=== PATIENT | male | born 1945 | race Caucasian/White ===

== ENCOUNTER 2020-03-17 12:14 | Inpatient (IN) ==
[2020-03-17 13:17] LABS: INR 2.22 (0.82-1.09)
[2020-03-17] MEDS ORDERED: Phytonadione SUBCUT/IM Adult 10 MG/ML AMP (IM or SQ not preferred route) IM ONE (13:45)
[2020-03-17] MEDS ORDERED: PHYTONADIONE 10 MG IVPB - ED ONCE IV ONE (14:00)
[2020-03-17 14:23] LABS: Albumin 3.9 g/dL (3.2-5.2); Albumin/Globulin Ratio 1.5 (1-3); BUN/Creatinine Ratio 14.3 (8-20); Calcium 8.9 mg/dL (8.6-10.3); EGFR African American 98.3 (>60); EGFR Non-African American 81.2 (>60); Globulin 2.6 g/dL (2-4); Potassium 3.5 mmol/L (3.5-5.0); Total Bilirubin 0.6 mg/dL (0.2-1.0); Total Protein 6.5 g/dL (6.4-8.9)
[2020-03-17 15:12] LABS: Activated Partial Thrombo Time 35.3 seconds (26.0-38.0)
[2020-03-17 18:06] LABS: ABS Eosinophils 0.1 10^3/ul (0-0.6); ABS Lymphocytes 1.5 10^3/ul (1.0-4.8); ABS Monocytes 0.7 10^3/ul (0-0.8); Eosinophil % 1.4 %; Hematocrit 38 % (42-52); Hemoglobin 12.4 g/dL (14.0-18.0); Lymphocyte % 20.1 %; Mean Corpuscular HGB Conc 33 g/dL (31-36); Mean Corpuscular Hemoglobin 27 pg (27-31); Mean Corpuscular Volume 81 fL (80-94); Mean Platelet Volume 10.5 fL (7.4-10.4); Platelet Count 129 10^3/uL (150-450); Red Blood Count 4.65 10^6 /uL (4.18-5.48); Red Cell Distribution Width 16 % (10-15); White Blood Count 7.3 10^3/uL (3.5-10.8)
[2020-03-17] MEDS ORDERED: Ondansetron 4 mg VIAL 2 MG/ML 2 ml VIAL IV PRN (18:14)
[2020-03-17 18:30] LABS: INR 1.58 (0.82-1.09)
[2020-03-17] MEDS: Metoprolol Tartrate 5 mg VIAL 5 ml VIAL (1 mg/ml) IV SCH (22:19)
[2020-03-18] MEDS: NS 0.9% 1000 ml BAG 1,000 ML IV SCH ×3 (00:58→23:20)
[2020-03-18] MEDS: Metoprolol Tartrate 5 mg VIAL 5 ml VIAL (1 mg/ml) IV SCH ×3 (02:09→15:21)
[2020-03-18 04:44] LABS: ABS Eosinophils 0.1 10^3/ul (0-0.6); ABS Lymphocytes 1.4 10^3/ul (1.0-4.8); ABS Monocytes 0.7 10^3/ul (0-0.8); Eosinophil % 1.1 %; Hematocrit 30 % (42-52); Hemoglobin 9.9 g/dL (14.0-18.0); Lymphocyte % 22.5 %; Mean Corpuscular HGB Conc 33 g/dL (31-36); Mean Corpuscular Hemoglobin 27 pg (27-31); Mean Corpuscular Volume 80 fL (80-94); Mean Platelet Volume 9.5 fL (7.4-10.4); Platelet Count 113 10^3/uL (150-450); Red Blood Count 3.71 10^6 /uL (4.18-5.48); Red Cell Distribution Width 17 % (10-15); White Blood Count 6.4 10^3/uL (3.5-10.8)
[2020-03-18 04:53] LABS: INR 1.42 (0.82-1.09)
[2020-03-18 04:59] LABS: BUN/Creatinine Ratio 16.2 (8-20); Calcium 7.5 mg/dL (8.6-10.3); EGFR African American 124.8 (>60); EGFR Non-African American 103.1 (>60); Magnesium 1.5 mg/dL (1.9-2.7); Phosphorus 2.4 mg/dL (2.5-5.0)
[2020-03-18] MEDS ORDERED: Magnesium Sulfate IV 3 GM in NS 0.9% 100 ml BAG 100 ML IVPB ONE (09:56)
[2020-03-18] MEDS: KCL 10 MEQ/50 ML IVPREMIX 10 MEQ/50 ML BAG IV SCH ×3 (10:26→12:39)
[2020-03-18 17:05] LABS: INR 1.23 (0.82-1.09)
[2020-03-18] MEDS: hydrALAZINE 20 mg/ml 1 ML Vial IV IV SLOW PU PRN (17:26)
[2020-03-19 04:27] LABS: Hematocrit 34 % (42-52); Hemoglobin 11.3 g/dL (14.0-18.0); Mean Corpuscular HGB Conc 34 g/dL (31-36); Mean Corpuscular Hemoglobin 27 pg (27-31); Mean Corpuscular Volume 80 fL (80-94); Mean Platelet Volume 9.3 fL (7.4-10.4); Platelet Count 125 10^3/uL (150-450); Red Blood Count 4.23 10^6 /uL (4.18-5.48); Red Cell Distribution Width 16 % (10-15); White Blood Count 7.3 10^3/uL (3.5-10.8)
[2020-03-19 04:32] LABS: INR 1.22 (0.82-1.09)
[2020-03-19 04:42] LABS: BUN/Creatinine Ratio 13.8 (8-20); EGFR Non-African American 94.2 (>60); Phosphorus 2.4 mg/dL (2.5-5.0); Potassium 3.5 mmol/L (3.5-5.0)
[2020-03-19] MEDS: Metoprolol Tartrate 5 mg VIAL 5 ml VIAL (1 mg/ml) IV SCH (07:34)
[2020-03-19] MEDS: hydrALAZINE 20 mg/ml 1 ML Vial IV IV SLOW PU PRN (11:43)
[2020-03-19 15:25] VITALS: BP 132/77
== END 2020-03-19 16:06 | disposition home or self-care (01) | DRG 86 ==
LOC: ED 12:14 → ICU 16:45
PROVIDERS: ADMIT Surgery Surgical Critical Care; ATTEND Surgery Surgical Critical Care

== ENCOUNTER 2022-08-30 16:56 | Inpatient (IN) ==
[2022-08-30 17:55] LABS: ABS Basophils 0.1 10^3/ul (0-0.2); ABS Eosinophils 0.1 10^3/ul (0-0.6); ABS Lymphocytes 1.5 10^3/ul (1.0-4.8); ABS Monocytes 0.5 10^3/ul (0-0.8); ABS Neutrophils 5.9 10^3/ul (1.5-7.7); Eosinophil % 0.8 %; Hematocrit 26 % (42-52); Lymphocyte % 19.1 %; Mean Corpuscular HGB Conc 32 g/dL (31-36); Mean Corpuscular Hemoglobin 28 pg (27-31); Mean Corpuscular Volume 88 fL (80-94); Mean Platelet Volume 9.3 fL (7.4-10.4); Nucleated Red Blood Cells % 0.1; Platelet Count 167 10^3/uL (150-450); Red Blood Count 2.92 10^6 /uL (4.18-5.48); Red Cell Distribution Width 16 % (10-15); White Blood Count 8.1 10^3/uL (3.5-10.8)
[2022-08-30 18:40] LABS: Albumin 3.4 g/dL (3.2-5.2); Albumin/Globulin Ratio 1.3 (1-3); C Reactive Protein 4.11 mg/L (<8.01); Calcium 8.6 mg/dL (8.6-10.3); Globulin 2.6 g/dL (2-4); Potassium 3.8 mmol/L (3.5-5.0); Total Bilirubin 0.5 mg/dL (0.2-1.0); eGFR CKD-EPI 89.5 (>60)
[2022-08-30] MEDS ORDERED: Prothrombin Complex Conc. DOSE = Units Factor IX (nine) IV SLOW PU ONE (19:51)
[2022-08-30] MEDS ORDERED: Lactated Ringers 1000 ml BAG 1,000 ML IV ONE (19:52)
[2022-08-30] MEDS ORDERED: Phytonadione IV (Adult) 10 MG in NS 0.9% 50 ML 50 ML IV ONE (20:12)
[2022-08-30 20:23] LABS: INR 2.1 (0.89-1.11)
[2022-08-30 23:53] LABS: ABS Basophils 0.1 10^3/ul (0-0.2); ABS Eosinophils 0.1 10^3/ul (0-0.6); ABS Lymphocytes 1.5 10^3/ul (1.0-4.8); ABS Monocytes 0.6 10^3/ul (0-0.8); Eosinophil % 0.8 %; Hematocrit 26 % (42-52); Hemoglobin 8.3 g/dL (14.0-18.0); Lymphocyte % 15.9 %; Mean Corpuscular HGB Conc 33 g/dL (31-36); Mean Corpuscular Hemoglobin 28 pg (27-31); Mean Corpuscular Volume 85 fL (80-94); Mean Platelet Volume 8.9 fL (7.4-10.4); Nucleated Red Blood Cells % 0.1; Platelet Count 149 10^3/uL (150-450); Red Cell Distribution Width 15 % (10-15); White Blood Count 9.3 10^3/uL (3.5-10.8)
[2022-08-30 23:59] LABS: Magnesium 1.9 mg/dL (1.9-2.7); Phosphorus 3.2 mg/dL (2.5-5.0)
[2022-08-31 00:14] LABS: INR 1.35 (0.89-1.11)
[2022-08-31 00:26] LABS: Albumin 2.9 g/dL (3.2-5.2); Albumin/Globulin Ratio 1.5 (1-3); Calcium 7.8 mg/dL (8.6-10.3); Magnesium 1.8 mg/dL (1.9-2.7); Phosphorus 2.6 mg/dL (2.5-5.0); Potassium 3.9 mmol/L (3.5-5.0); Total Bilirubin 0.8 mg/dL (0.2-1.0); Total Protein 4.9 g/dL (6.4-8.9); eGFR CKD-EPI 92.9 (>60)
[2022-08-31] MEDS ORDERED: Magnesium Sulfate 2 gm BAG 2 GM/50 ML BAG IVPB ONE (00:52)
[2022-08-31] MEDS ORDERED: KCL 10 MEQ/50 ML IVPREMIX 10 MEQ/50 ML BAG IV ONE (00:52)
[2022-08-31] MEDS: Pantoprazole VIAL 40 MG VIAL IV SCH ×2 (01:59→12:18)
[2022-08-31] MEDS ORDERED: PEG 3000 GI LAVAGE 1 GALLON PO ONE ×2 (06:00→17:55)
[2022-08-31 06:43] LABS: ABS Eosinophils 0.1 10^3/ul (0-0.6); ABS Lymphocytes 1.6 10^3/ul (1.0-4.8); ABS Monocytes 0.5 10^3/ul (0-0.8); ABS Neutrophils 4.3 10^3/ul (1.5-7.7); Eosinophil % 1.4 %; Hematocrit 24 % (42-52); Hemoglobin 8.2 g/dL (14.0-18.0); Lymphocyte % 24.3 %; Mean Corpuscular HGB Conc 35 g/dL (31-36); Mean Corpuscular Hemoglobin 30 pg (27-31); Mean Corpuscular Volume 86 fL (80-94); Mean Platelet Volume 9.5 fL (7.4-10.4); Nucleated Red Blood Cells % 0.3; Platelet Count 133 10^3/uL (150-450); Red Blood Count 2.76 10^6 /uL (4.18-5.48); Red Cell Distribution Width 16 % (10-15); White Blood Count 6.5 10^3/uL (3.5-10.8)
[2022-08-31 06:52] LABS: Calcium 7.4 mg/dL (8.6-10.3); Potassium 3.9 mmol/L (3.5-5.0); eGFR CKD-EPI 92.2 (>60)
[2022-08-31 12:55] LABS: Hematocrit 24 % (42-52); Hemoglobin 7.8 g/dL (14.0-18.0)
[2022-08-31 22:39] LABS: Hematocrit 24 % (42-52); Hemoglobin 7.7 g/dL (14.0-18.0)
[2022-09-01] MEDS: Pantoprazole VIAL 40 MG VIAL IV SCH ×2 (03:14→12:44)
[2022-09-01 05:47] LABS: ABS Basophils 0.1 10^3/ul (0-0.2); ABS Eosinophils 0.1 10^3/ul (0-0.6); ABS Lymphocytes 1.6 10^3/ul (1.0-4.8); ABS Monocytes 0.5 10^3/ul (0-0.8); ABS Neutrophils 3.2 10^3/ul (1.5-7.7); Eosinophil % 1.4 %; Hematocrit 28 % (42-52); Hemoglobin 8.8 g/dL (14.0-18.0); Lymphocyte % 29.4 %; Mean Corpuscular HGB Conc 32 g/dL (31-36); Mean Corpuscular Hemoglobin 28 pg (27-31); Mean Corpuscular Volume 87 fL (80-94); Mean Platelet Volume 9.1 fL (7.4-10.4); Nucleated Red Blood Cells % 0.1; Platelet Count 148 10^3/uL (150-450); Red Blood Count 3.18 10^6 /uL (4.18-5.48); Red Cell Distribution Width 16 % (10-15); White Blood Count 5.4 10^3/uL (3.5-10.8)
[2022-09-01 06:08] LABS: Potassium 3.9 mmol/L (3.5-5.0); eGFR CKD-EPI 88.6 (>60)
[2022-09-01 13:37] LABS: Magnesium 1.9 mg/dL (1.9-2.7)
[2022-09-01] MEDS ORDERED: Midazolam 5 mg/5 ml VIAL 1 mg/ml 5 ml VIAL (5 mg) ONE (15:37)
[2022-09-01] MEDS ORDERED: fentaNYL 100 mcg/2 ml 50 MCG/ML VIAL ONE (15:37)
[2022-09-02] MEDS: Pantoprazole VIAL 40 MG VIAL IV SCH ×2 (01:58→12:25)
[2022-09-02 04:51] LABS: ABS Eosinophils 0.1 10^3/ul (0-0.6); ABS Lymphocytes 1.5 10^3/ul (1.0-4.8); ABS Monocytes 0.6 10^3/ul (0-0.8); ABS Neutrophils 3.1 10^3/ul (1.5-7.7); Eosinophil % 1.1 %; Hematocrit 27 % (42-52); Hemoglobin 8.6 g/dL (14.0-18.0); Lymphocyte % 27.7 %; Mean Corpuscular HGB Conc 32 g/dL (31-36); Mean Corpuscular Hemoglobin 28 pg (27-31); Mean Corpuscular Volume 85 fL (80-94); Platelet Count 139 10^3/uL (150-450); Red Blood Count 3.12 10^6 /uL (4.18-5.48); Red Cell Distribution Width 16 % (10-15); White Blood Count 5.3 10^3/uL (3.5-10.8)
[2022-09-02 05:02] LABS: Calcium 7.9 mg/dL (8.6-10.3); Magnesium 1.9 mg/dL (1.9-2.7); Potassium 3.6 mmol/L (3.5-5.0); eGFR CKD-EPI 84.6 (>60)
[2022-09-02 15:16] LABS: Carcinoembryonic Antigen 0.8 ng/mL (0.1-5.0)
[2022-09-02] MEDS ORDERED: Iodixanol (CONTRAST) 320 MG/ML 100 ML SDV IV ONE (18:51)
[2022-09-03 04:54] LABS: Hematocrit 28 % (42-52); Mean Corpuscular HGB Conc 32 g/dL (31-36); Mean Corpuscular Hemoglobin 28 pg (27-31); Mean Corpuscular Volume 86 fL (80-94); Mean Platelet Volume 8.7 fL (7.4-10.4); Platelet Count 143 10^3/uL (150-450); Red Blood Count 3.22 10^6 /uL (4.18-5.48); Red Cell Distribution Width 16 % (10-15); White Blood Count 4.2 10^3/uL (3.5-10.8)
[2022-09-03 05:21] LABS: Magnesium 1.9 mg/dL (1.9-2.7); Potassium 3.3 mmol/L (3.5-5.0); eGFR CKD-EPI 86.8 (>60)
[2022-09-03] MEDS ORDERED: Potassium Chlor 20 meq TAB.ER PO ONE (07:59)
[2022-09-03] MEDS ORDERED: Iron Sucrose 200 MG in NS 0.9% 100 ml BAG 100 ML IVPB ONE (13:00)
[2022-09-03 14:26] VITALS: BP 144/62
== END 2022-09-03 14:15 | disposition home or self-care (01) | DRG 375 ==
LOC: ED 16:56 → EDHOLD 21:02 → ICU 23:08
PROVIDERS: ADMIT Internal Medicine; ATTEND Internal Medicine

== ENCOUNTER 2022-09-12 08:43 | Inpatient (IN) ==
[2022-09-12 15:05] VITALS: BP 153/82
== END 2022-09-12 09:03 | disposition short-term general hospital (02) | DRG 395 ==
LOC: SSU 08:43
PROVIDERS: ADMIT Surgery; ATTEND Surgery

== ENCOUNTER 2024-06-21 10:46 | Observation (INO) ==
[2024-06-21 12:17] LABS: Hematocrit 38.3 % (38-53); Hemoglobin 12.8 g/dL (13.2-16.3); Mean Corpuscular Hemoglobin 29.3 pg (27-33); Mean Corpuscular Hgb Conc 33.5 g/dL (31-36); Mean Corpuscular Volume 87.4 fL (80-97); Red Blood Count 4.38 10^6/uL (4.06-5.63); Red Cell Distribution Width 16.9 % (12-17); White Blood Count 5.1 10^3/uL (3.6-10.2)
[2024-06-21 12:19] LABS: INR 2.27 (0.85-1.14)
[2024-06-21 12:41] LABS: Mean Platelet Volume 9.1 fL (7.5-11.2); Platelet Count 93 10^3/uL (150-450)
[2024-06-21 12:43] LABS: Albumin/Globulin Ratio 1.6 (1-3); Calcium 8.9 mg/dL (8.6-10.3); Creatinine, Serum 0.77 mg/dL (0.67-1.17); Globulin 2.5 g/dL (2-4); Potassium 4.1 mmol/L (3.5-5.0); Total Protein 6.5 g/dL (6.4-8.9); eGFR CKD-EPI 91.1 (>60)
[2024-06-21] MEDS: Nitro 2% OINT (Nitroglycerin) 1 INCH/PAK TOPICAL ONE (12:44)
[2024-06-21 12:46] LABS: ABS Eosinophils 0.1 10^3/uL (0.0-0.5); ABS Lymphocytes 1.2 10^3/uL (1.0-4.8); ABS Monocytes 0.7 10^3/uL (0.0-1.1); ABS Neutrophils 3.1 10^3/uL (1.5-7.6); Eosinophil % 1.3 %; Lymphocyte % 23.7 %; Nucleated Red Blood Cells % 0.1 %/100WBC (0.0-0.8)
[2024-06-21 13:35] LABS: High Sensitivity Troponin 1 Hr 12 pg/mL (<20)
[2024-06-21] MEDS: Iodixanol (CONTRAST) 320 MG/ML 100 ML SDV IV ONE (13:46)
[2024-06-21] MEDS: hydrALAZINE 20 mg/ml 1 ML Vial IV IV SLOW PU ONE ×2 (13:59→18:53)
[2024-06-21] MEDS: Furosemide 40 mg/4 ml IV VIAL IV ONE (16:53)
[2024-06-21] MEDS ORDERED: Sulfur Hexaflouride MICROSPHR 25 MG VIAL IV PRN (20:43)
[2024-06-22] MEDS: Iodixanol (CONTRAST) 320 MG/ML 100 ML SDV IV ONE (00:43)
[2024-06-22 06:23] LABS: INR 2.21 (0.85-1.14)
[2024-06-22 07:08] LABS: Hematocrit 37.3 % (38-53); Hemoglobin 12.8 g/dL (13.2-16.3); Mean Corpuscular Hemoglobin 29.5 pg (27-33); Mean Corpuscular Hgb Conc 34.2 g/dL (31-36); Mean Corpuscular Volume 86.2 fL (80-97); Mean Platelet Volume 9.1 fL (7.5-11.2); Platelet Count 90 10^3/uL (150-450); Red Blood Count 4.33 10^6/uL (4.06-5.63); Red Cell Distribution Width 16.6 % (12-17); White Blood Count 5.6 10^3/uL (3.6-10.2)
[2024-06-22 07:22] LABS: Albumin 3.9 g/dL (3.2-5.2); Albumin/Globulin Ratio 1.5 (1-3); Calcium 8.8 mg/dL (8.6-10.3); Creatinine, Serum 0.84 mg/dL (0.67-1.17); Globulin 2.6 g/dL (2-4); Magnesium 1.8 mg/dL (1.9-2.7); Potassium 3.4 mmol/L (3.5-5.0); Total Bilirubin 1.9 mg/dL (0.2-1.0); Total Protein 6.5 g/dL (6.4-8.9); eGFR CKD-EPI 88.7 (>60)
[2024-06-22] MEDS: Aspirin EC 81 mg TAB.EC (enteric coated) PO SCH (08:58)
[2024-06-22] MEDS: Furosemide 20 mg/2 ml IV VIAL IV ONE (11:58)
[2024-06-22] MEDS ORDERED: Warfarin per PHARMACY **NOTE FOLLOW UP SCH (17:00)
[2024-06-22] MEDS ORDERED: Warfarin DAILY REMINDER **NOTE FOLLOW UP SCH ×2 (17:00)
[2024-06-22] MEDS: Empagliflozin 25 MG TAB PO ONE (17:22)
[2024-06-23 07:24] LABS: ABS Eosinophils 0.1 10^3/uL (0.0-0.5); ABS Lymphocytes 1.3 10^3/uL (1.0-4.8); ABS Monocytes 0.9 10^3/uL (0.0-1.1); ABS Neutrophils 3.2 10^3/uL (1.5-7.6); Eosinophil % 1.9 %; Hemoglobin 12.5 g/dL (13.2-16.3); Lymphocyte % 24.2 %; Mean Corpuscular Hemoglobin 29.4 pg (27-33); Mean Corpuscular Hgb Conc 33.9 g/dL (31-36); Mean Corpuscular Volume 86.8 fL (80-97); Mean Platelet Volume 9.3 fL (7.5-11.2); Nucleated Red Blood Cells % 0.1 %/100WBC (0.0-0.8); Platelet Count 89 10^3/uL (150-450); Red Blood Count 4.26 10^6/uL (4.06-5.63); Red Cell Distribution Width 16.7 % (12-17); White Blood Count 5.5 10^3/uL (3.6-10.2)
[2024-06-23 08:03] LABS: INR 1.97 (0.85-1.14)
[2024-06-23 08:24] LABS: Albumin 3.8 g/dL (3.2-5.2); Albumin/Globulin Ratio 1.5 (1-3); Calcium 8.5 mg/dL (8.6-10.3); Creatinine, Serum 0.89 mg/dL (0.67-1.17); Globulin 2.6 g/dL (2-4); Magnesium 1.8 mg/dL (1.9-2.7); Potassium 3.4 mmol/L (3.5-5.0); Total Bilirubin 1.9 mg/dL (0.2-1.0); Total Protein 6.4 g/dL (6.4-8.9); eGFR CKD-EPI 87.2 (>60)
[2024-06-23] MEDS: Magnesium Sulfate 2 gm BAG 2 GM/50 ML BAG IVPB ONE (09:32)
[2024-06-23] MEDS: Empagliflozin 25 MG TAB PO SCH (09:38)
[2024-06-23 12:30] LABS: Body Fluid Total Nucleated 748 /mcL
[2024-06-23 12:32] LABS: Body Fluid Appearance Bloody; Body Fluid Source Pleural Fluid
[2024-06-23 12:33] LABS: Body Fluid Color Red
[2024-06-23 14:18] LABS: Body Fluid Mono 65 %; Body Fluid Total Cells Counted 200
[2024-06-23 14:34] VITALS: BP 153/91
[2024-06-25 10:23] LABS: Triglycerides (BF) 28 mg/dL
[2024-06-25 10:24] LABS: Albumin, BF 1.8 g/dL; Fluid Type, Albumin PLEURAL; Fluid Type, Protein, Total PLEURAL; Glucose, BF 123 mg/dL; Total Protein, BF 2.5 g/dL
[2024-06-25 10:37] LABS: Lactate Dehydrogenase, BF 107 U/L
== END 2024-06-23 16:30 | disposition home or self-care (01) ==
LOC: ED 10:46 → EDHOLD 10:46 → SUATTDRO 19:24 → MEDTELE 20:27
PROVIDERS: ADMIT Student in an Organized Health Care Education/Training Program; ATTEND Student in an Organized Health Care Education/Training Program